=== PATIENT | female | born 1945 | race Caucasian/White ===

== ENCOUNTER 2018-05-21 12:38 | Emergency (ER) | payer MEDICARE, BC ==
[2018-05-21] MEDS ORDERED: NS 0.9% 1000 ML* 1,000 ML IV ONE (12:49)
[2018-05-21 13:17] LABS: ABS Basophils 0 10^3/ul (0-0.2); ABS Eosinophils 0.6 10^3/ul (0-0.6); ABS Lymphocytes 1.4 10^3/ul (1.0-4.8); ABS Monocytes 0.5 10^3/ul (0-0.8); ABS Neutrophils 9.6 10^3/ul (1.5-7.7); ABS Nucleated RBC 0 10^3/ul; Eosinophil % 4.7 %; Hematocrit 35 % (35-47); Hemoglobin 11.6 g/dl (12.0-16.0); Lymphocyte % 11.4 %; Mean Corpuscular HGB Conc 33 g/dl (31-36); Mean Corpuscular Hemoglobin 33 pg (27-31); Mean Corpuscular Volume 99 fL (80-97); Mean Platelet Volume 9.8 fL (7.4-10.4); Nucleated Red Blood Cells % 0; Platelet Count 178 10^3/ul (150-450); Red Blood Count 3.53 10^6/ul (4.00-5.40); Red Cell Distribution Width 13 % (10.5-15); White Blood Count 12.1 10^3/ul (3.5-10.8)
--- NOTE | 2018-05-21 14:26 | ED ---
Syncope/Near Syncope - HPI Summary HPI Summary: Patient is a 72-year-old female who presents emergency department for a near- syncopal episode that occurred just prior to arrival. Patient states she was in [place] walking back from [facility] [place] when she started to feel diaphoretic, lightheaded and dyspneic. She denies associated chest pain or shortness of breath. She was sat down and symptoms slowly improved. Pt. states she did not actual pass out. Patient in the ER states she is feeling better. Past medical history of renal failure, is on dialysis. Denies cardiac history. Denies recent illness, fever, cough, abdominal pain, vomiting, diarrhea. Symptoms are moderate in severity. No current modifying factors. Patient follows with PCP and patient services rep at [place]. - History Of Current Complaint Chief Complaint: EDSyncope Time Seen by Provider: 05/21/18 12:49 Hx Obtained From: Patient, Family/Tv Technician - Allergies/Home Medications Allergies/Adverse Reactions: Allergies Allergy/AdvReac Type Severity Reaction Status Date / Time amoxicillin [From Augmentin] Allergy Unknown Verified 05/21/18 12:47 Reaction Details clavulanic acid Allergy Unknown Verified 05/21/18 12:47 [From Augmentin] Reaction Details Sulfa (Sulfonamide Allergy Unknown Verified 05/21/18 12:47 Antibiotics) Reaction Details Home Medications: Home Medications Acetaminophen [Tylenol Arthritis] 2,000 mg PO DAILY 05/21/18 [History Confirmed 05/21/18] Losartan TAB* [Cozaar TAB*] 25 mg PO DAILY 05/21/18 [History Confirmed 05/21/18] Pravastatin (NF) [Pravachol (NF)] 40 mg PO DAILY 05/21/18 [History Confirmed 02/28] Umeclidin/Vilant 62.5 MDI(NF) [ANORO 62.5/25 Ellipta DEVICE (NF)] 1 inh INH DAILY 05/21/18 [History Confirmed 05/21/18] traZODone TAB* [Desyrel TAB*] 50 mg PO BEDTIME 05/21/18 [History Confirmed 05/21] PMH/Surg Hx/FS Hx/Imm Hx Previously Healthy: Yes Respiratory History: Reports: Hx Chronic Obstructive Pulmonary Disease (COPD) Infectious Disease History: No Infectious Disease History: Denies: Traveled Outside the [place] in Last 30 Days - Family History Known Family History: Positive: Non-Contributory - Social History Occupation: Retired Lives: With Family Alcohol Use: Occasionally Substance Use Type: Reports: None Smoking Status (MU): Former Smoker Review of Systems Constitutional: Negative Negative: Fever, Chills Eyes: Negative ENT: Negative Cardiovascular: Negative Negative: Palpitations, Chest Pain Respiratory: Negative Negative: Shortness Of Breath, Cough Gastrointestinal: Negative Negative: Abdominal Pain, Vomiting, Diarrhea Genitourinary: Negative Neurological: Negative Negative: Headache, Weakness, Paresthesia, Numbness, Syncope All Other Systems Reviewed And Are Negative: Yes Physical Exam Triage Information Reviewed: Yes Vital Signs On Initial Exam: Initial Vitals Temp Pulse Resp BP Pulse Ox 97 F 53 16 133/65 100 05/21/18 12:45 05/21/18 12:45 05/21/18 12:45 05/21/18 12:45 05/21/18 12:45 Vital Signs Reviewed: Yes Appearance: Positive: Well-Appearing - Pt. sitting up in bed in NAD. Pleasant. present. Skin: Positive: Warm, Dry Head/Face: Positive: Normal Head/Face Inspection Eyes: Positive: Normal, EOMI Neck: Positive: Supple Cardiovascular: Positive: Normal, RRR Abdomen Description: Positive: Nontender, No Organomegaly Musculoskeletal: Positive: Normal, Strength/ROM Intact Neurological: Positive: Normal, CN Intact II-III Psychiatric: Positive: Affect/Mood Appropriate - [place] Coma Scale Best Eye Response: 4 - Spontaneous Best Motor Response: 6 - Obeys Commands Best Verbal Response: 5 - Oriented Coma Scale Total: 15 Diagnostics - Vital Signs Vital Signs Temp Pulse Resp BP Pulse Ox 05/21/18 12:45 97 F 53 16 133/65 100 - Laboratory Lab Results: Lab Results 05/21/18 05/21/18 Range/Units 13:10 13:10 WBC 12.1 H (3.5-10.8) 10^3/ul RBC 3.53 L (4.00-5.40) 10^6/ul Hgb 11.6 L (12.0-16.0) g/dl Hct 35 (35-47) % MCV 99 H (80-97) fL MCH 33 H (27-31) pg MCHC 33 (31-36) g/dl RDW 13 (10.5-15) % Plt Count 178 (150-450) 10^3/ul MPV 9.8 (7.4-10.4) fL Neut % (Auto) 79.4 % Lymph % (Auto) 11.4 % [place] % (Auto) 4.1 % Eos % (Auto) 4.7 % Baso % (Auto) 0.4 % Absolute Neuts (auto) 9.6 H (1.5-7.7) 10^3/ul Absolute Lymphs (auto) 1.4 (1.0-4.8) 10^3/ul Absolute Monos (auto) 0.5 (0-0.8) 10^3/ul Absolute Eos (auto) 0.6 (0-0.6) 10^3/ul Absolute Basos (auto) 0 (0-0.2) 10^3/ul Absolute Nucleated RBC 0 10^3/ul Nucleated RBC % 0 Sodium 133 L (135-145) mmol/L Potassium 4.9 (3.5-5.0) mmol/L Chloride 104 (101-111) mmol/L Carbon Dioxide 22 (22-32) mmol/L Anion Gap 7 (2-11) mmol/L BUN 53 H (6-24) mg/dL Creatinine 2.89 H (0.51-0.95) mg/dL Est GFR ( Amer) 19.3 (>60) Est GFR (Non-Af Amer) 16.0 (>60) BUN/Creatinine Ratio 18.3 (8-20) Glucose 108 H (70-100) mg/dL Calcium 9.6 (8.6-10.3) mg/dL Magnesium 2.4 (1.9-2.7) mg/dL Total Bilirubin 0.50 (0.2-1.0) mg/dL AST 24 (13-39) U/L ALT 11 (7-52) U/L Alkaline Phosphatase 43 (34-104) U/L Troponin I 0.00 (<0.04) ng/mL Total Protein 6.7 (6.4-8.9) g/dL Albumin 4.2 (3.2-5.2) g/dL Globulin 2.5 (2-4) g/dL Albumin/Globulin Ratio 1.7 (1-3) TSH 5.45 (0.34-5.60) mcIU/mL Result Diagrams: 05/21/18 13:10 05/21/18 13:10 Lab Statement: Any lab studies that have been ordered have been reviewed, and results considered in the medical decision making process. Course/Dx Assessment/Plan: Pt. presenting for near syncopal episode which sounds like a vasovagal episode. She denies any CP. Pt. in the ER if feeling well. Placed on monitor. Pt. did receive 250cc NSS bolus in ambulance. Pt. currently has no complaints. ECG done at 1309 shows a sinus bradycardia at 50 bpm, normal axis, appropriate intervals, no STEMI elevation or depression. No prior tracing for comparison. Chest x-ray is negative for acute findings. Urinalysis is negative for infection. CBC shows mild leukocytosis of 12. Stable H and H. BUN today is 53, cr 2.89 and GFR is 16. We were able to get pt.'s labs from [place] from 2months ago and at that time BUN was 38, cr 1.8, and GFR 29. Na 133. Patient notes that she was recently taken off of Voltaren by mouth last week and believes this contributed to her renal function. Orthostatic VS are normal. Troponin x 2 negative. Case was discussed with Dr. Nur who recommend hospitalist consult. I spoke with hospitalist, Dr. Delarosa, who reviewed labs and case and recommends outpt. treatment at this time and rehydration. Pt. was given another 250cc NSS. Results and plan discussed with pt. and . Pt. is comfortable with dc and close f.u with PCP for repeat labs and re- evaluation. Advised to increase fluids. To change positions slowly. To return to ER if symptoms change or worsen. - Diagnoses Differential Diagnosis/HQI/PQRI: Positive: Coronary Artery Disease, Dysrhythmia , Metabolic Reaction, Myocardial Infarction, Vasovagal Episode Provider Diagnoses: Near syncope, Dehydration, Renal failure, chronic Discharge - Sign-Out/Discharge Documenting (check all that apply): Patient Departure - Discharge Plan Condition: Improved Disposition: HOME Patient Education Materials: Dehydration (ED), Chronic Kidney Disease (ED), Near Syncope (ED) Referrals: No Primary Care Phys,NOPCP [Primary Care Provider] - Additional Instructions: Call your PCP tomorrow to schedule a close follow up appointment for re- evaluation and repeat labs Increase fluids and rest Change positions slowly Return to ER if symptoms change or worsen - Billing Disposition and Condition Condition: IMPROVED Disposition: Home
[2018-05-21] MEDS ORDERED: NS 0.9% 250 ML* 250 ML IV ONE (15:27)
[2018-05-21 15:58] LABS: Urine Appearance Clear; Urine Blood Negative (Negative); Urine Color Yellow; Urine Ketones Negative (Negative); Urine Protein Negative (Negative); Urine Specific Gravity 1.017 (1.010-1.030); Urine Urobilinogen Negative (Negative)
[2018-05-21 16:24] VITALS: BP 181/81
== END 2018-05-21 16:40 | disposition home or self-care (01) ==
LOC: ED 12:38
DX: R55 Syncope and collapse (principal); E86.0 Dehydration; N18.9 Chronic kidney disease, unspecified; J44.9 Chronic obstructive pulmonary disease, unspecified; Z87.891 Personal history of nicotine dependence; Z88.2 Allergy status to sulfonamides
CPT/HCPCS: 36415; 71045; 80053; 81003; 83735; 84443; 84484; 85025; 93005; 96360; 99283